=== PATIENT | male | born 1995 | race Caucasian/White ===

== ENCOUNTER 2018-11-22 20:30 | Outpatient (CLI) | payer OTHER | END 2018-11-22 20:31 | disposition home or self-care (01) | LOC: SLEEPLAB 20:30 | PROVIDERS: ATTEND Student in an Organized Health Care Education/Training Program | DX: G47.33 Obstructive sleep apnea (adult) (pediatric) (principal); R53.83 Other fatigue; R06.83 Snoring; I10 Essential (primary) hypertension | CPT/HCPCS: 95810 ==

== ENCOUNTER 2019-01-10 19:30 | Outpatient (CLI) | payer OTHER | END 2019-01-10 19:31 | disposition home or self-care (01) | LOC: SLEEPLAB 19:30 | PROVIDERS: ATTEND Student in an Organized Health Care Education/Training Program | DX: G47.33 Obstructive sleep apnea (adult) (pediatric) (principal); R53.83 Other fatigue; R06.83 Snoring; I10 Essential (primary) hypertension | CPT/HCPCS: 95811 ==

== ENCOUNTER 2019-02-09 09:18 | Outpatient (CLI) | payer OTHER | END 2019-02-09 09:19 | disposition home or self-care (01) | LOC: CTENTCT 09:18 | PROVIDERS: ATTEND Otolaryngology Plastic Surgery within the Head & Neck | DX: J32.9 Chronic sinusitis, unspecified (principal) | CPT/HCPCS: 70486 ==

== ENCOUNTER 2019-02-15 07:42 | Day surgery (SDC) | payer OTHER ==
[2019-02-14 11:55] VITALS: BMI 30.5
[2019-02-15] MEDS ORDERED: Oxymetazoline HCl 0.05% ( 15 ML ) ONE ×3 (09:19→10:45)
[2019-02-15] MEDS ORDERED: Fentanyl 100 MCG/2 ML VIAL ONE (10:29)
[2019-02-15] MEDS ORDERED: Midazolam HCl 2 mg/2 ml Vial ONE (10:29)
[2019-02-15] MEDS ORDERED: Lidocaine 1% w/Epinephrine 1:100K 20 ML VIAL ONE (10:33)
[2019-02-15] MEDS ORDERED: Bacitracin Zinc Ointment 30 gm TUBE ONE (10:33)
[2019-02-15] MEDS ORDERED: Dexamethasone 20 MG/5 ML VIAL ONE (15:21)
[2019-02-15] MEDS ORDERED: PROPOFOL 200 MG/20 ML VIAL ONE (15:21)
[2019-02-15] MEDS ORDERED: Rocuronium Bromide 10 MG/ML (10ML VIAL) ONE (15:21)
[2019-02-15] MEDS ORDERED: Ondansetron PF 4 MG/2 ML Vial ONE (15:21)
[2019-02-15] MEDS ORDERED: Glycopyrrolate 0.2 MG/ML 5 ML SYRINGE ONE (15:21)
[2019-02-15] MEDS ORDERED: Lidocaine 1% PF 5 ML VIAL ONE (15:21)
--- NOTE | 2019-02-16 11:01 | OP ---
DATE OF PROCEDURE: 02/15/2019 PREOPERATIVE DIAGNOSES: 1. Chronic rhinosinusitis. 2. Nasal septal deviation. 3. Bilateral inferior turbinate hypertrophy. 4. Nasal obstruction. 5. Chronic adenotonsillitis. 6. Adenotonsillar hypertrophy. 7. Obstructive sleep apnea. POSTOPERATIVE DIAGNOSES: 1. Chronic rhinosinusitis. 2. Nasal septal deviation. 3. Bilateral inferior turbinate hypertrophy. 4. Nasal obstruction. 5. Chronic adenotonsillitis. 6. Adenotonsillar hypertrophy. 7. Obstructive sleep apnea. PROCEDURES PERFORMED: 1. Bilateral endoscopic sinus surgery, total ethmoidectomies. 2. Bilateral endoscopic sinus surgery, maxillary antrostomies. 3. Bilateral endoscopic sinus surgery, frontal sinusotomies. 4. Nasal septoplasty. 5. Bilateral inferior turbinate submucosal resection. 6. Tonsillectomy and adenoidectomy. ESTIMATED BLOOD LOSS: 50 mL. COMPLICATIONS: None. ANESTHESIA: GETA. PROCEDURE IN DETAIL: After consent was obtained, the patient was identified, brought to the operating room, and placed on the operating table in the supine position. General endotracheal anesthesia and intravenous access were obtained and we proceeded with positioning the patient for oropharyngeal surgery. Oropharyngeal exposure was obtained with a Isaías-Joseph mouth gag after a head drape was placed and secured with a towel clip. The Isaías-Joseph mouth gag was then suspended from the Cristina tray and palatal elevation was achieved with a red rubber catheter. The right tonsil was addressed first. We used a curved Allis to grasp the tonsil and retract it medially as an anterior pillar incision was made. The retrotonsillar fascial plane was then established and blunt dissection was performed with the suction cautery. Blood vessels were anticipated, identified, and cauterized as they were encountered. Ultimately, dissection was carried to the posterior tonsillar pillar mucosa which was incised hemostatically, as well as the base of tongue connection. The tonsil was then passed off as a specimen and bleeding points within the tonsillar bed were cauterized under direct visualization. We subsequently turned our attention to the contralateral side, where using a similar technique, a near identical procedure was performed. Again, the tonsil was grasped and retracted medially with a curved Allis. The retrotonsillar fascial plane was established and while the anterior pillar was retracted medially. The hemostatic blunt dissection of the tonsil with a suction cautery was performed with blood vessels anticipated, identified, and cauterized as they were encountered. Again, dissection continued to the base of tongue and posterior tonsillar pillar mucosa which was incised in a hemostatic fashion. The tonsillar beds were then carefully inspected and bleeding points were identified and cauterized with a suction cautery. After this portion of the procedure, hemostasis was completely obtained. Under direct mirror visualization, we visualized the adenoid pad. Under direct mirror visualization, we removed the bulk of the adenoid tissue with the adenoid curette. We then packed the nasopharynx for an appropriate period of time with [id number] tonsillar sponges. After a period of observation, we removed the pack. Under indirect mirror visualization, we obtained hemostasis and vaporization of residual adenoid tissue with electrocautery. The patient's oral cavity was copiously irrigated with iced saline and subsequently suctioned. After completion of the procedure, the nasal cavity and oropharynx were irrigated and suctioned as were the gastric contents. The patient was then awakened and transferred to the recovery room where the patient remained in stable condition prior to discharge to Day Stay. Patient was taken to the operating room and placed supine on the table. General endotracheal anesthesia was obtained by the anesthesia staff. Tube was secured in the left lower lip. Patient was then placed in the beach chair position, and Afrin pledgets were placed in the nasal cavity. Injections of 1% lidocaine with 1:100,000 epinephrine were made into the nasal septum as well as the inferior turbinates. Patient was then prepped and draped in standard surgical fashion for nasal surgery. Following this, the Afrin pledgets were removed. A Pilger incision was made on the left nasal septum. Submucoperichondrial dissection was performed. The deviated portions of the septum included portions of the cartilage and the bony septum. These isolated areas were removed using 3 cutting rongeurs. There was noted to be a large dorsal and caudal strut, left intact for support of the nose. The mucoperichondrial flaps were then reapproximated using a 4-0 gut stitch. Any straight pieces of cartilage were crushed prior to this and placed between the mucoperichondrial flaps. Following this, the inferior turbinates were then punctured with a submucosal coblation wand, and submucosal coblations were performed of multiple areas of the inferior portion of the anterior inferior turbinate. Please note that the submucosal microdebrider was used to submucosally resect the anterior and inferior portions of the inferior turbinates bilaterally. Following this, a 0-degree endoscope was advanced in the middle meatus. Middle turbinates were gently medialized using a Kilgore elevator. The left middle turbinate laura bullosa was incised vertically with a sickle knife and the lateral wall of this left middle turbinate cell was removed using the straight microdebrider and straight Blakesley forceps. Following this, the uncinate process was identified and was anteriorly fractured using a ball-ended probe bilaterally. Following this, the uncinate process was removed using the 0-degree microdebrider and up-biting Blakesley forceps bilaterally. Following this, the natural maxillary sinus ostia was identified using a ball-ended probe and was gently widened using the straight Blakesley forceps and the curved microdebrider bilaterally. Following this, the ethmoidal bulla was identified and was punctured on its medial and inferior aspect and was removed using the 0-degree microdebrider and upbiting Blakesley forceps. Following this, the grand lamella was identified and was punctured in the posterior ethmoidal cells. Working from posterior to anterior, the ethmoidal cells were opened in a mucosal sparing technique using the 0-degree microdebrider and upbiting Blakesley forceps. Following this, 45 degrees endoscope and the 40 degrees curved microdebrider blade were used to further open the frontal sinus recess cells and frontal sinus ostia bilaterally. Following this, nasal cavity was irrigated. Mirapex was placed within the middle meatus. Solo splints were placed and secured. The patient tolerated the procedure well. Job ID: [id number]
== END 2019-02-15 14:25 | disposition home or self-care (01) ==
LOC: SDC 07:42
PROVIDERS: ATTEND Otolaryngology Plastic Surgery within the Head & Neck
PROC: 099R8ZZ Drainage of Left Maxillary Sinus, Via Natural or Artificial Opening Endoscopic (ICD-10-PCS; principal; 2019-02-15)
PROC: 09TV8ZZ Resection of Left Ethmoid Sinus, Via Natural or Artificial Opening Endoscopic (ICD-10-PCS; principal; 2019-02-15)
PROC: 09SM0ZZ Reposition Nasal Septum, Open Approach (ICD-10-PCS; principal; 2019-02-15)
PROC: 099T8ZZ Drainage of Left Frontal Sinus, Via Natural or Artificial Opening Endoscopic (ICD-10-PCS; principal; 2019-02-15)
PROC: 099S8ZZ Drainage of Right Frontal Sinus, Via Natural or Artificial Opening Endoscopic (ICD-10-PCS; principal; 2019-02-15)
PROC: 09TL7ZZ Resection of Nasal Turbinate, Via Natural or Artificial Opening (ICD-10-PCS; principal; 2019-02-15)
PROC: 099Q8ZZ Drainage of Right Maxillary Sinus, Via Natural or Artificial Opening Endoscopic (ICD-10-PCS; principal; 2019-02-15)
PROC: 09TU8ZZ Resection of Right Ethmoid Sinus, Via Natural or Artificial Opening Endoscopic (ICD-10-PCS; principal; 2019-02-15)
PROC: 0CTPXZZ Resection of Tonsils, External Approach (ICD-10-PCS; principal; 2019-02-15)
PROC: 0CTQXZZ Resection of Adenoids, External Approach (ICD-10-PCS; principal; 2019-02-15)
DX: J32.4 Chronic pansinusitis (principal); J34.2 Deviated nasal septum; J34.3 Hypertrophy of nasal turbinates; J34.89 Other specified disorders of nose and nasal sinuses; J35.03 Chronic tonsillitis and adenoiditis; G47.33 Obstructive sleep apnea (adult) (pediatric); J45.909 Unspecified asthma, uncomplicated
CPT/HCPCS: 88304; J0131; J1100; J2001; J2250; J2405; J2704; J3010